=== PATIENT | male | born 2000 | race Hispanic/Latino ===

== ENCOUNTER 2021-10-05 10:00 | Emergency (ER) | payer SELFPAY ==
[~2021-10-05] VITALS: Ht 180.3 cm; Wt 117.9 kg
[2021-10-05 10:05] VITALS: BP 157/82
[2021-10-05 10:14] VITALS: BP 148/82
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
--- NOTE | 2021-10-05 10:53 | DIREP ---
PROCEDURE:XRAY KNEE 3 VIEWS-LT COMPARISON:None. INDICATIONS:left knee pain FINDINGS: BONES:There is a small spur projecting laterally from the lateral femoral condyle. JOINTS:Normal. SOFT TISSUES:There is a metallic clip lateral to the distal femoral metaphysis. OTHER:No additional findings. CONCLUSION:Small spur lateral femoral condyle. Dictated by: Nery Garcia III, MD on 10/05/2021 at 10:47 AM
--- NOTE | 2021-10-05 10:55 | NUR ---
TX LOAN WRAP TO LEFT KNEE PER EDP ORDER.
== END 2021-10-05 11:05 | disposition home or self-care (01) ==
LOC: ER 10:00 → EDBD 10:00 → ER 11:05
DX: M25.562 Pain in left knee (principal); V48.5XXA Car driver injured in noncollision transport accident in traffic accident, initial encounter; Y93.89 Activity, other specified; Y92.410 Unspecified street and highway as the place of occurrence of the external cause; Y99.8 Other external cause status; F12.90 Cannabis use, unspecified, uncomplicated
CPT/HCPCS: 99283; 73562-LT